=== PATIENT | male | born 1950 | race Caucasian/White ===

== ENCOUNTER 2016-10-03 10:23 | Emergency (ER) | payer OTHER ==
[2016-10-03 10:34] VITALS: BP 166/109; PULSE 109; RESP 16; TEMP 97.5; O2SAT 97
--- NOTE | 2016-10-03 10:54 | UCPHY ---
H & P Time Seen by Provider: 10/03/16 10:47 Patient Type: New HPI/ROS: This patient presents with a chief complaint of sore throat which began during the night. He has had some mild nasal congestion for approximately 1 week but denies ear pain, cough, chest pain, shortness of breath or fever. He has no malaise or fatigue. Smoking Status: Never smoked Physical Exam: GENERAL: Well-appearing, well-nourished and in no acute distress. HEAD: Atraumatic, normocephalic. EYES: t, sclera anicteric, conjunctiva are normal. ENT: TMs normal, nares patent, oropharynx clear without exudates. Moist mucous membranes. There is some mild lymphoid hyperplasia of the pharynx and mild injection. NECK: Normal range of motion, supple without lymphadenopathy or JVD. LUNGS: Breath sounds clear to auscultation bilaterally and equal. No wheezes rales or rhonchi. HEART: Regular rate and rhythm EXTREMITIES: Normal range of motion, NEUROLOGICAL: Cranial nerves II through XII grossly intact. Normal speech, normal gait. PSYCH: Normal mood, normal affect. SKIN: Warm, dry, normal turgor, no visible rashes or lesions. Constitutional: Initial Vital Signs Temperature (C) 36.4 C 10/03/16 10:29 Heart Rate 109 H 10/03/16 10:29 Respiratory Rate 16 10/03/16 10:29 Blood Pressure 166/109 H 10/03/16 10:29 O2 Sat (%) 97 10/03/16 10:29 O2 Delivery Mode Room Air Allergies/Adverse Reactions: No Known Allergies Allergy (Verified 10/03/16 10:34) Home Medications: Medication Instructions Recorded IRON 10/03/16 Levothyroxine 10/03/16 Bud 5/325 (*) 10/03/16 Tramadol HCl 10/03/16 Medical Decision Making Differential Diagnosis: The results of the strep screen are concordant with my clinical opinion and therefore believe that the sore throat is secondary to a viral illness. Antibiotics are not indicated. - Data Points Laboratory Results: 10/03/16 10/03/16 Unknown 10:40 Group A Strep Screen NEGATIVE (NEGATIVE) Group A Strep DNA Pending Departure - Departure Disposition: Home, Routine, Self-Care Clinical Impression: Pharyngitis Qualifiers: Pharyngitis/tonsillitis etiology: unspecified etiology Qualifier Code: (J02.9) Acute pharyngitis, unspecified Condition: Good Instructions: Pharyngitis (ED) Additional Instructions: If your symptoms have not resolved in 5 or 6 days you should be re-evaluated. If you feel that your symptoms are worsening you develop a fever or other symptoms of concern should be seen sooner. Adult Pain & Fever Control: We recommend Acetaminophen (Tylenol) and Ibuprofen (Motrin, Advil) for pain and fever control. When fever is high or pain severe, both drugs can be used at the same time, but at different intervals. Please note the time differences. Your dose is: Acetaminophen [650]mg every 4 to 6 hours ibuprofen [600]mg every [6] hours with food OR naproxen Sodium (Aleve) [440]mg every 12 hours. Note: do not take Acetaminophen with Hydrocodone (Vicodin, Lortab) or Oxycodone (Percocet). These medications also contain Acetaminophen. No more than 3000 mg of Acetaminophen should be taken in 24 hours (for an adult) . The maximal dose of ibuprofen that it is safe in a 24-hour period is 2400 mg. You may take 400 mg every 4 hours, 600 mg every 6 hours or 800 mg every 8 hours safely. - PQRS PQRS Measurement: Not applicable
== END 2016-10-03 11:02 | disposition home or self-care (01) ==
LOC: CED 10:23
DX: J02.9 Acute pharyngitis, unspecified (principal)
CPT/HCPCS: 87880-PO; 99203-PO; G0463-PO